=== PATIENT | female | born 1990 | race African-American/Black ===

== ENCOUNTER 2016-09-21 10:43 | Emergency (ER) | payer MEDICAID ==
[~2016-09-21] VITALS: Ht 152.4 cm; Wt 81.0 kg
[2016-09-21] MEDS ORDERED: ACETAMINOPHEN 325MG TABLET PO ONE (12:00)
[2016-09-21 16:30] VITALS: BP 113/57
== END 2016-09-21 17:12 | disposition home or self-care (01) ==
LOC: ER 10:49
DX: M25.531 Pain in right wrist (principal); Z88.0 Allergy status to penicillin; Z88.6 Allergy status to analgesic agent
CPT/HCPCS: 29125; 73090; 73110; 99284; Z7610

== ENCOUNTER 2021-02-08 08:21 | Emergency (ER) | payer MEDICAID ==
[~2021-02-08] VITALS: Ht 152.4 cm; Wt 90.0 kg
[~2021-02-08 08:21] MED LIST: FAMO-135 PO
[2021-02-08 08:24] VITALS: BP 126/89
[2021-02-08] MEDS ORDERED: DIPH25CA83 PO (08:40)
[2021-02-08] MEDS ORDERED: DIPHENHYDRAMINE 25MG CAPSULE PO ONE (08:45)
== END 2021-02-08 08:52 | disposition home or self-care (01) ==
LOC: ER 08:21
DX: L25.9 Unspecified contact dermatitis, unspecified cause (principal); J45.909 Unspecified asthma, uncomplicated; Z98.890 Other specified postprocedural states; Z88.8 Allergy status to other drugs, medicaments and biological substances; Z88.0 Allergy status to penicillin
CPT/HCPCS: 99282; Q0163

== ENCOUNTER 2021-07-12 20:17 | Emergency (ER) | payer MEDICAID, OTHER ==
[~2021-07-12] VITALS: Ht 152.4 cm; Wt 100.0 kg
[~2021-07-12 20:17] MED LIST changes: +DIPH25CA83 PO
[2021-07-12] MEDS ORDERED: ACETAMINOPHEN 325MG TABLET PO ONE (22:00)
[2021-07-13] MEDS ORDERED: HYDROCODONE/ACETAMINOPHEN 5/325MG TABLET PO ONE (00:30)
[2021-07-13 00:40] VITALS: BP 130/86
[2021-07-13] MEDS ORDERED: BACL-141 MT (01:17)
[2021-07-13] MEDS ORDERED: HYDR-4001 MT (01:17)
== END 2021-07-13 02:15 | disposition home or self-care (01) ==
LOC: ER 20:17
DX: M25.561 Pain in right knee (principal); I10 Essential (primary) hypertension; R20.0 Anesthesia of skin; J45.909 Unspecified asthma, uncomplicated; Z98.890 Other specified postprocedural states; Z88.0 Allergy status to penicillin
CPT/HCPCS: 73560; 81025; 99283; L1830

== ENCOUNTER 2022-12-30 16:04 | Emergency (ER) | payer MEDICAID, MEDICARE, OTHER ==
[~2022-12-30] VITALS: Ht 152.4 cm; Wt 91.0 kg
[~2022-12-30 16:04] MED LIST changes: +BACL-141 MT; +HYDR-4001 MT
[2022-12-30 16:14] VITALS: O2SAT 100
[2022-12-30] MEDS ORDERED: PENICILLIN G BENZATHINE 1,200,000 UNITS/2ML SYR IM ONE (17:30)
[2022-12-30] MEDS ORDERED: DEXAMETHASONE 4MG TABLET PO ONE (17:30)
[2022-12-30] MEDS ORDERED: DEXAMETHASONE 6MG TABLET PO NR (17:45)
[2022-12-30] MEDS ORDERED: CLIN-194 MT (18:50)
[2022-12-30] MEDS ORDERED: NEO/5DRO3 RIGHTEYE (18:50)
[2022-12-30] MEDS ORDERED: IBUP-2029 MT ×3 (18:57→18:58)
[2022-12-30 19:20] VITALS: BP 129/94; PULSE 81; RESP 18; TEMP 98.9
== END 2022-12-30 21:13 | disposition home or self-care (01) ==
LOC: ER 16:04
DX: J02.9 Acute pharyngitis, unspecified (principal); J45.909 Unspecified asthma, uncomplicated; Z98.890 Other specified postprocedural states
CPT/HCPCS: 81025; 99283; J0561; J8540